=== PATIENT | male | born 1955 | race Caucasian/White ===

== ENCOUNTER 2019-01-05 12:13 | Inpatient (IN) | payer BC ==
[2019-01-05] MEDS ORDERED: NALOXONE (0.4 MG/ML) INJ IV (14:30)
[2019-01-05] MEDS ORDERED: CEPASTAT LOZENGE MT (14:30)
[2019-01-05] MEDS ORDERED: AL HYDROX/MG HYDROX/SIMETH 30 ML CUP PO (14:30)
[2019-01-05] MEDS ORDERED: HYDROmorphONE 0.5 MG/0.5 ML SYG IV (14:30)
[2019-01-05] MEDS ORDERED: BISACODYL 10 MG SUPP PR (14:30)
[2019-01-05] MEDS ORDERED: ONDANSETRON 4 MG INJ IV (14:30)
[2019-01-05] MEDS ORDERED: CYCLOBENZAPRINE 10 MG TAB PO (14:30)
[2019-01-05] MEDS ORDERED: ACETAMINOPHEN 325 MG TAB PO (14:30)
[2019-01-05] MEDS ORDERED: HYDROCODONE/APAP (10/325) TAB PO (14:30)
[2019-01-05] MEDS ORDERED: DIPHENHYDRAMINE 50 MG INJ IV (14:30)
[2019-01-05] MEDS ORDERED: DIPHENHYDRAMINE 25 MG CAP PO (14:30)
[2019-01-05] MEDS ORDERED: FENTAnyl 50 MCG/ML VIAL (14:56)
[2019-01-05] MEDS ORDERED: MIDAZOLAM 1 MG/ML 2 ML INJ (14:56)
[2019-01-05] MEDS ORDERED: EPHEDrine SULFATE 50 MG/5 ML SYG IV (15:00)
[2019-01-05] MEDS ORDERED: LABETALOL HCL 20MG INJ IV (15:00)
[2019-01-05] MEDS ORDERED: PROCHLORPERAZINE 10 MG INJ IV (15:00)
[2019-01-05] MEDS ORDERED: HYDROmorphONE 1 MG/5 ML IV SYRINGE IV ×2 (15:00)
[2019-01-05] MEDS ORDERED: hydrALAzine 20 MG INJ IV (15:00)
[2019-01-05] MEDS ORDERED: OXYCODONE/ACETAMINOPHEN (5/325) TAB PO (15:00)
[2019-01-05] MEDS ORDERED: FENTAnyl 50 MCG/ML VIAL IV (15:00)
[2019-01-05] MEDS ORDERED: LIDOCAINE 2% (SDV) 5 ML INJ (15:14)
[2019-01-05] MEDS ORDERED: PROPOFOL 40 ML (15:14)
[2019-01-05] MEDS ORDERED: CEFAZOLIN 1 GM INJ (15:18)
[2019-01-05] MEDS ORDERED: SUCCINYLCHOLINE CHLORIDE 100 MG/5 ML SYG IV ×2 (15:37)
[2019-01-05] MEDS ORDERED: ROCURONIUM 50 MG INJ ×2 (15:38→15:56)
[2019-01-05] MEDS ORDERED: HYDROmorphONE 2 MG/ML SYG (15:38)
[2019-01-05] MEDS ORDERED: FAMOTIDINE 20 MG INJ (15:38)
[2019-01-05] MEDS ORDERED: DEXAMETHASONE 4 MG/ML 5 ML INJ (15:38)
[2019-01-05] MEDS ORDERED: ONDANSETRON 4 MG INJ (15:38)
[2019-01-05] MEDS: BUPIVACAINE 0.25%/EPI (SDV) 30 ML INJ (16:07)
[2019-01-05] MEDS: CA CHLORIDE 10% 10 ML SYRINGE (16:07)
[2019-01-05] MEDS: SURGIFOAM POWDER 1 GM KIT (16:07)
[2019-01-05] MEDS: HEPARIN 1000 UNITS/ML 10 ML INJ (16:08)
[2019-01-05] MEDS: THROMBIN (BOVINE) 5,000 UNIT VIAL TP (16:08)
[2019-01-05] MEDS: POLYMYXIN/BACITRACIN 1L IRRIG (16:08)
[2019-01-05] MEDS: FENTAnyl 50 MCG/ML VIAL IV ×2 (18:18→18:48)
[2019-01-05] MEDS: ONDANSETRON 4 MG INJ IV (18:18)
[2019-01-05] MEDS: CEFAZOLIN 1 GM/50 ML (PMX) 50 ML IVPB (18:19)
[2019-01-05] MEDS: HYDROmorphONE 1 MG/5 ML IV SYRINGE IV (18:39)
[2019-01-05] MEDS: DIPHENHYDRAMINE 50 MG INJ IV (18:40)
[2019-01-05] MEDS: MEPERIDINE 25 MG INJ IV (19:37)
[2019-01-05] MEDS: HYDROCODONE/APAP (10/325) TAB PO (19:48)
[2019-01-05] MEDS: HYDROmorphONE 0.2 MG/ML PCA IV (20:16)
[2019-01-05] MEDS: LATANOPROST 0.005% 2.5 ML OPH BOTH EYES (21:00)
[2019-01-05] MEDS: GABAPENTIN 300 MG CAP PO (22:47)
[2019-01-05] MEDS: DOCUSATE SODIUM 100 MG CAP PO (22:48)
[2019-01-05] MEDS: D5W-0.45 NACL + KCL 20 MEQ 1,000 ML IV (22:50)
[2019-01-06] MEDS: D5W-0.45 NACL + KCL 20 MEQ 1,000 ML IV ×2 (00:27→08:35)
[2019-01-06] MEDS: CEFAZOLIN 1 GM/50 ML (PMX) 50 ML IVPB ×2 (01:39→08:31)
[2019-01-06] MEDS: HYDROmorphONE 0.2 MG/ML PCA IV ×2 (02:50→13:25)
[2019-01-06 05:12] LABS: ADD MAN DIFF? NO
[2019-01-06 05:20] LABS: WHITE BLOOD COUNT 11.7 10^3/ul (4.8-10.8)
[2019-01-06 05:20] LABS: BASOPHILS % 0.2 % (0.0-2.0); HEMATOCRIT 39.6 % (42.0-52.0); HEMOGLOBIN 13.4 g/dl (14.0-18.0); LYMPHOCYTES # 1.3 10^3/ul (0.8-2.9); LYMPHOCYTES % 10.8 % (15.0-51.0); MEAN CORPUSCULAR HEMOGLOBIN 34.5 pg (29.0-33.0); MEAN CORPUSCULAR HGB CONC 33.8 g/dl (32.0-37.0); MEAN CORPUSCULAR VOLUME 102.1 fl (82.0-101.0); MEAN PLATELET VOLUME 10.1 fl (7.4-10.4); MONOCYTE # 1.1 10^3/ul (0.3-0.9); MONOCYTES % 9.8 % (0.0-11.0); NEUTROPHIL # 9.2 10^3/ul (1.6-7.5); NEUTROPHILS % 78.9 % (39.0-77.0); PLATELET COUNT 135 10^3/UL (140-415); RED BLOOD COUNT 3.88 10^6/ul (4.70-6.10); RED CELL DISTRIBUTION WIDTH 12.2 % (11.5-14.5)
[2019-01-06 05:55] LABS: ANION GAP 9 (5-13); BLOOD UREA NITROGEN 13 mg/dl (7-20); CARBON DIOXIDE 24 mmol/L (21-31); CHLORIDE 106 mmol/L (97-110); CREATININE 0.78 mg/dl (0.61-1.24); Estimated GFR > 60 mL/min (>60); GLUCOSE 125 mg/dl (70-220); MAGNESIUM 1.9 mg/dl (1.7-2.5); SODIUM 139 mmol/L (135-144)
[2019-01-06] MEDS: ATORVASTATIN 20 MG TAB PO (08:32)
[2019-01-06] MEDS: DOCUSATE SODIUM 100 MG CAP PO (08:32)
[2019-01-06] MEDS: GABAPENTIN 300 MG CAP PO ×2 (08:33→13:24)
[2019-01-06] MEDS: LOSARTAN 50 MG TAB PO (08:55)
[2019-01-06] MEDS ORDERED: LOSARTAN 50 MG TAB PO (21:00)
== END 2019-01-06 16:55 | disposition home or self-care (01) | DRG 520 ==
LOC: REC 12:13 → MS1 20:45
PROC: 00BY0ZZ Excision of Lumbar Spinal Cord, Open Approach (ICD-10-PCS; principal; 2019-01-05 14:30)
PROC: 01NB0ZZ Release Lumbar Nerve, Open Approach (ICD-10-PCS; 2019-01-05 14:30)
DX: M71.38 Other bursal cyst, other site (principal); M48.061 Spinal stenosis, lumbar region without neurogenic claudication; M54.16 Radiculopathy, lumbar region; Z98.1 Arthrodesis status; E78.5 Hyperlipidemia, unspecified; I10 Essential (primary) hypertension; E66.9 Obesity, unspecified; Z98.84 Bariatric surgery status
CPT/HCPCS: 72100; 80048; 83735; 85025; 86999; 88304; 88311; 97116; 97162; 97530